=== PATIENT | male | born 1955 | race Caucasian/White ===

== ENCOUNTER 2016-12-03 07:11 | Day surgery (SDC) | payer OTHER ==
[2016-12-03] MEDS ORDERED: BENZOCAINE UNIT DOSE SPRAY HURRICAINE MM ONE (07:18)
[2016-12-03] MEDS ORDERED: fentaNYL 100 MCG/2 ML INJ IVP ONE (07:18)
[2016-12-03] MEDS ORDERED: PROPOFOL 200 MG/20 ML VIAL IVP ONE (07:18)
[2016-12-03] MEDS ORDERED: MIDAZOLAM 2 MG/2 ML VIAL IVP ONE (07:18)
[2016-12-03] MEDS ORDERED: NS 500 ML IV ONE (07:18)
--- NOTE | 2016-12-03 07:35 | CPEKG ---
Heart Rate: 59 RR Interval: 1017 QRSD Interval: 92 QT Interval: 420 QTC Interval: 416 QRS [place]: 27 T Wave [place]: 28 EKG Severity - ABNORMAL ECG - EKG Impression: ATRIAL FIBRILLATION, V-RATE 54-68 EKG Impression: ATRIAL FIBRILLATION WAS NEW IN COMPARISON TO PRIOR ECG (NSR) Electronically Signed By: Timo Higgins 04-Dec-2016 09:06:41
[2016-12-03 07:58] LABS: INR 1.09 (0.83-1.16)
[2016-12-03 07:59] LABS: APTT 27.5 SEC (23.0-38.0)
[2016-12-03] MEDS ORDERED: PROPOFOL 200 MG/20 ML VIAL ONE (08:06)
[2016-12-03 08:09] LABS: ANION GAP 9 mEq/L (8-16); CALCIUM 9.1 mg/dL (8.5-10.4); CARBON DIOXIDE 28 mEq/l (22-31); CHLORIDE 106 mEq/L (97-110); GLOMERULAR FILTRATION RATE > 60; GLUCOSE 102 mg/dL (70-100); MAGNESIUM 1.9 mg/dL (1.6-2.3); POTASSIUM 4.5 mEq/L (3.5-5.2); SODIUM 143 mEq/L (134-144)
[2016-12-03] MEDS ORDERED: ALBUTEROL 3 ML DEYVIAL ONE (08:53)
--- NOTE | 2016-12-03 09:01 | CPEKG ---
Heart Rate: 65 RR Interval: 923 P-R Interval: 236 QRSD Interval: 80 QT Interval: 396 QTC Interval: 412 P [place]: 25 QRS [place]: 9 T Wave [place]: 9 EKG Severity - ABNORMAL ECG - EKG Impression: SINUS RHYTHM EKG Impression: FIRST DEGREE AV BLOCK EKG Impression: PROBABLE LEFT ATRIAL ABNORMALITY EKG Impression: SINUS RHYTHM HAS REPLACED ATRIAL FIBRILLATION Electronically Signed By: Timo Higgins 04-Dec-2016 09:06:59
--- NOTE | 2016-12-03 19:05 | CPR ---
[f rep st] NONINVASIVE CARDIAC PROCEDURE REPORT REPORT TITLE: Cardioversion report. INDICATION: Atrial fibrillation. Anticoagulation. Eliquis was started yesterday evening. Patient has been instructed to continue it for 6 weeks. PETE was done prior to the procedure, and has been dictated separately. ANESTHESIOLOGISTS: Gladys Majano MD. PROCEDURE IN DETAIL: After PETE was done, under IV general anesthesia, 200 joules synchronized bipha sic DC shock was administered, which converted the patient to normal sinus rhythm. There were no complications. /[id number]/MODL
--- NOTE | 2016-12-05 09:18 | ECHO ---
[id number] + + [address] : : [facility] [address] : : [phone] + + Transesophageal Echocardiographic Report + + :Name: CLAYTON STUART Booth Study Date: 12/03/2016 09:30 AM : : Hospital Admission Number: [id number] : :: 1955 Gender: Male : :Age: 61 yrs Race: WH,White : :Reason For Study: Eval PORSCHE : :History: Pre Cardioversion : + + Left Ventricle The left ventricular ejection fraction is normal. The rhythm is atrial fibrillation. Atria Injection of contrast documented no interatrial shunt. The interatrial septum is intact with no evidence for an atrial septal defect. No left atrial mass or thrombus visualized. No thrombus is detected in the left atrial appendage. Mitral Valve The mitral valve is normal. There is no mitral valve stenosis. There is mild mitral regurgitation. Tricuspid Valve Normal tricuspid valve. There is mild tricuspid regurgitation. Aortic Valve The aortic valve is normal in structure and function. The aortic valve is trileaflet. There is no aortic stenosis. Trace aortic regurgitation. Pulmonic Valve The pulmonic valve is normal in structure and function. Trace pulmonic valvular regurgitation. Conclusion A 2D transesophageal echocardiogram with color flow Doppler was performed. The left ventricular ejection fraction is normal. The rhythm is atrial fibrillation. Injection of contrast documented no interatrial shunt. The interatrial septum is intact with no evidence for an atrial septal defect. No left atrial mass or thrombus visualized. No thrombus is detected in the left atrial appendage. There is mild mitral regurgitation. There is mild tricuspid regurgitation. The aortic valve is normal in structure and function. The aortic valve is trileaflet. Trace aortic regurgitation. Trace pulmonic valvular regurgitation. Proceeded with successful elective DC cardioversion. Final Reading Physician: Erasmo Rosales MD electronically signed on 12/05/2016 09:17 AM Ordering Physician: Erasmo Rosales Performed By: Erasmo Rosales MD
== END 2016-12-03 10:15 | disposition home or self-care (01) ==
LOC: FCATH 07:11
PROVIDERS: ATTEND Internal Medicine Cardiovascular Disease
PROC: B245ZZ4 Ultrasonography of Left Heart, Transesophageal (ICD-10-PCS; principal; 2016-12-03)
PROC: 5A2204Z Restoration of Cardiac Rhythm, Single (ICD-10-PCS; principal; 2016-12-03)
DX: I48.1 Persistent atrial fibrillation (principal); E78.00 Pure hypercholesterolemia, unspecified; I10 Essential (primary) hypertension
CPT/HCPCS: J2250; J2704

== ENCOUNTER 2017-06-15 10:43 | Day surgery (SDC) | payer OTHER ==
--- NOTE | 2017-06-15 10:54 | PDANEPAE ---
ANE History of Present Illness h/o a.fib/flutter presents for PETE/CV ANE Past Medical History - Cardiovascular History Hx Hypertension: No Hx Arrhythmias: Yes Hx Chest Pain: No Hx Coronary Artery / Peripheral Vascular Disease: No Hx CHF / Valvular Disease: No Hx Palpitations: Yes - Pulmonary History Hx COPD: No Hx Asthma/Reactive Airway Disease: Yes Hx Recent Upper Respiratory Infection: No Hx Oxygen in Use at Home: No Hx Sleep Apnea: No - Endocrine History Hx Diabetes: No Hypothyroid: Yes - Surgical History Prior Surgeries: s/p CB ablation 09/2013, PETE/CV 11/2016 ANE Review of Systems Review of systems is: negative Review of Systems: - Exercise capacity Exercise capacity: >=4 METS ANE Patient History - Allergies Allergies/Adverse Reactions: No Known Allergies Allergy (Unverified 06/07/13 12:42) - Home Medications Home medications: home medication list seen and reviewed Home Medications: Cyanocobalamin [Vitamin B12 1000 MCG (OTC)] 2,000 mcg PO DAILY 10/04/13 [Last Taken 10/03/13] Herbals/Supplements -Info Only 1 each PO AD 10/04/13 [Last Taken 10/03/13] Levothyroxine [Synthroid] 137 mcg PO DAILY06 10/04/13 [Last Taken 10/03/13] [place]-3 Fatty Acids [Fish Oil 1000 mg (OTC)] 2,000 mg PO DAILY 10/04/13 [Last Taken 10/03/13] Omeprazole [Prilosec 20 mg] 20 mg PO DAILY 10/04/13 [Last Taken 10/03/13] Pitavastatin Calcium [Livalo] 1 mg PO DAILY 10/04/13 [Last Taken 10/03/13] - NPO status NPO Status: no food or drink >8 hours - Anes Hx Anes Hx: no prior problems ANE Labs/Vital Signs - Labs Result Diagrams: 06/15/17 11:12 ANE Physical Exam - Airway Neck exam: FROM Mallampati Score: Class 1 Mouth exam: normal dental/mouth exam - Pulmonary Pulmonary: no respiratory distress - Cardiovascular Cardiovascular: regular rate and rhythym - ASA Status ASA Status: II ANE Anesthesia Plan Anesthesia Plan: GA with mask Urgent/Emergent Case: Betty servin completed preop but documented later for safe timely pt care
[2017-06-15] MEDS ORDERED: BENZOCAINE UNIT DOSE SPRAY HURRICAINE MM ONE (11:05)
[2017-06-15] MEDS ORDERED: ATROPINE SULFATE 1 MG/10 ML SYR IVP ONE (11:05)
[2017-06-15] MEDS ORDERED: MIDAZOLAM 2 MG/2 ML VIAL IVP ONE (11:05)
[2017-06-15] MEDS ORDERED: fentaNYL 100 MCG/2 ML INJ IVP ONE (11:05)
[2017-06-15] MEDS ORDERED: NS 500 ML IV ONE (11:05)
--- NOTE | 2017-06-15 11:13 | CPEKG ---
Heart Rate: 59 RR Interval: 1017 QRSD Interval: 90 QT Interval: 424 QTC Interval: 420 QRS [place]: 4 T Wave [place]: 4 EKG Severity - ABNORMAL ECG - EKG Impression: ATRIAL FIBRILLATION, V-RATE 58-59 Electronically Signed By: Tristian Baeza 15-Jun-2017 11:26:46
[2017-06-15] MEDS ORDERED: PROPOFOL 200 MG/20 ML VIAL ONE (11:39)
[2017-06-15 11:40] LABS: INR 1.13 (0.83-1.16); PROTIME(PATIENT) 14.4 SEC (12.0-15.0)
[2017-06-15 11:41] LABS: APTT 29.2 SEC (23.0-38.0)
--- NOTE | 2017-06-15 11:42 | PDHPUP ---
History & Physical Update H&P update statement: This history and physical update is based on an assessment of the patient which was completed after admission or registration (within 24 hours), but prior to the surgery/procedure. H&P update: H&P reviewed & patient examined, no change in patient's condition since H&P completed
[2017-06-15 11:54] LABS: ANION GAP 13 mEq/L (8-16); CALCIUM 9.8 mg/dL (8.5-10.4); CARBON DIOXIDE 27 mEq/l (22-31); CHLORIDE 104 mEq/L (97-110); CREATININE 1.1 mg/dL (0.7-1.3); GLOMERULAR FILTRATION RATE > 60; GLUCOSE 97 mg/dL (70-100); POTASSIUM 4.7 mEq/L (3.5-5.2); SODIUM 144 mEq/L (134-144)
--- NOTE | 2017-06-15 11:55 | PDTEE1 ---
PETE Cardioversion Procedure Procedure: Electrical Cardioversion, Transesophageal Echo Indications: Atrial Fibrillation Consent: Signed and in Chart Anticoagulation: Eliquis Procedural Details: Pads were placed in anterior-posterior position. PETE probe was advanced and standard images obtained. There is no evidence of left atrial or left atrial appendage thrombus. Synchronized cardioversion attempt #1: 200J Results: Normal sinus rhythm Conclusions: Successful PETE Cardioversion Patient Problems: Problems Problem Status Onset Atrial fibrillation or flutter Acute
--- NOTE | 2017-06-15 12:18 | CPEKG ---
Heart Rate: 55 RR Interval: 1091 P-R Interval: 240 QRSD Interval: 90 QT Interval: 420 QTC Interval: 402 P [place]: 24 QRS [place]: 5 T Wave [place]: 1 EKG Severity - ABNORMAL ECG - EKG Impression: SINUS RHYTHM EKG Impression: FIRST DEGREE AV BLOCK EKG Impression: BORDERLINE T ABNORMALITIES, INFERIOR LEADS Electronically Signed By: Tristian Baeza 15-Jun-2017 13:16:34
--- NOTE | 2017-06-15 12:23 | POSTANESTH ---
Post Anesthetic Evaluation Cardiovascular Status: Normal, Stable Respiratory Status: Normal, Stable Level of Consciousness/Mental Status: Can Participate in Eval Pain Control: Adequate, Prn Tx Ordered Nausea/Vomiting Control: Adequate, Prn Tx Ordered Complications Possibly Related to Anesthesia: None Noted
[2017-06-15] MEDS ORDERED: APIXABAN 5 MG TAB PO SCH (21:00)
--- NOTE | 2017-06-23 11:08 | ECHO ---
[email or web address] [address] [address] Main: [phone] Fax: Transesophageal Echocardiography Name: STUART ARNOLD MR#: [id number] Study Date: 06/15/2017 Study Time: 11:38 AM Date of : 1955 Age: 62 year(s) Height: ( ) Weight: ( ) BSA: Gender: Male Examination: PETE Indication: Image Quality: Contrast: Requested by: Erasmo Rosales Heart Rate: Rhythm: BP: / Procedure Staff Cream Ripener: Blaire Acharya Reading Physician: Erasmo Rosales PETE Exam Details Patient Consent: Risks, alternatives of procedure explained to patient, informed consent obtained. Conclusions: Normal systolic function. The ejection fraction is visually estimated to be 65 %. An agitated saline study was performed and was positive for intracardiac shunting. No thrombus is noted in the left atrium. No thrombus in left appendage. Measurements: Chambers Valvular Assessment AV/MV Valvular Assessment TV/PV Normal Normal Normal Name Value Range Name Value Range Name Value Range Visual EF: 65 % Additional Measurements: Findings: Left Ventricle: Normal size left ventricle. Normal systolic function. The ejection fraction is visually estimated to be 65 %. No regional wall motion abnormality. Right Ventricle: Normal size right ventricle. Left Atrium: An agitated saline study was performed and was positive for intracardiac shunting. No thrombus is noted in the left atrium. Patient: STUART ARNOLD Study Date: 06/15/2017 Page 1 of 2 11:38 AM Left Atrial Appendage: No thrombus in left appendage. Mitral Valve: The mitral valve is normal in appearance and function. Mild mitral valve regurgitation is present. Aortic Valve: The aortic valve is normal in appearance and function. Tricuspid Valve: The tricuspid valve is normal in appearance and function. Mild tricuspid regurgitation is present. Pulmonic Valve: The pulmonic valve is normal in appearance and function. Trivial to mild pulmonic valve regurgitation. Aorta: The aorta is normal. Pericardium: No pericardial effusion. l1n (No Signature Object) Patient: STUART ARNOLD Study Date: 06/15/2017 Page 2 of 2 11:38 AM [id number]
== END 2017-06-15 13:20 | disposition home or self-care (01) ==
LOC: FCATH 10:43
PROVIDERS: ATTEND Internal Medicine Cardiovascular Disease
PROC: 5A2204Z Restoration of Cardiac Rhythm, Single (ICD-10-PCS; principal; 2017-06-15)
PROC: B245ZZ4 Ultrasonography of Left Heart, Transesophageal (ICD-10-PCS; principal; 2017-06-15)
DX: I48.1 Persistent atrial fibrillation (principal)
CPT/HCPCS: J2704

== ENCOUNTER 2017-06-21 10:29 | Emergency (ER) | payer OTHER ==
[2017-06-21 10:39] VITALS: RESP 16
--- NOTE | 2017-06-21 10:48 | CPEKG ---
Heart Rate: 54 RR Interval: 1111 P-R Interval: 216 QRSD Interval: 94 QT Interval: 408 QTC Interval: 387 P [place]: 13 QRS [place]: 6 T Wave [place]: 2 EKG Severity - NORMAL ECG - EKG Impression: SINUS RHYTHM Electronically Signed By: Mak Ruiz 21-Jun-2017 15:13:43
--- NOTE | 2017-06-21 11:38 | EDPHY ---
H & P Time Seen by Provider: 06/21/17 11:01 HPI/ROS: Chief complaint. Blurry vision left eye HPI. 60-year-old male presents emergency department with blurry vision in left eye for 6 days. He had a cardioversion for atrial fibrillation on June 15. He got home and he noticed vision was blurry especially with reading to the left eye. He also has a sense of heart pounding in his head. No chest pain or shortness of breath. No abdominal pain. He is walking okay. Denies focal weakness or paresthesias. ROS Constitutional. no fever/chills, no weakness no similar symptoms previously the leg Eyes. Left eye blurry vision ENT. no sore throat, no nasal drainage Cardiovascular. no chest pain Respiratory. no shortness of breath, no cough Abdominal. no abdominal pain, no nausea/vomiting, no diarrhea . no problems urinating MS. no calf pain/swelling, no neck/back pain, no joint pain Skin. no rash Lymph. no swollen glands Neuro. no headache, no dizziness, no difficulty walking or with speech Past Medical/Surgical History: Past medical history seen for atrial fibrillation, ablation, dyslipidemia Social History: , nonsmoker, no alcohol Smoking Status: Never smoked Physical Exam: General Appearance: Alert well-developed male mild distress vital signs stable Eyes: Pupils equal and round no pallor or injection. ENT, Mouth: Mucous membranes are moist. Respiratory: There are no retractions, lungs are clear to auscultation. Cardiovascular: Regular rate and rhythm. Gastrointestinal: Abdomen is soft and nontender, no masses, bowel sounds normal. Neurological: Awake and alert, sensory and motor exams grossly normal. Speech is normal. Cranial nerves intact. There is no focal weakness or paresthesias. No pronator drift. Lvpxmo-or-iujm is normal. Gait is normal Skin: Warm and dry, no rashes. Musculoskeletal: Neck is supple nontender. Extremities symmetrical, full range of motion. Psychiatric: Patient is oriented X 3, there is no agitation. Constitutional: Initial Vital Signs Temperature (C) 36.8 C 06/21/17 10:37 Heart Rate 58 L 06/21/17 10:37 Respiratory Rate 16 06/21/17 10:37 Blood Pressure 136/80 H 06/21/17 10:37 O2 Sat (%) 97 06/21/17 10:37 O2 Delivery Mode Room Air Allergies/Adverse Reactions: No Known Allergies Allergy (Unverified 06/07/13 12:42) Home Medications: Medication Instructions Recorded Levothyroxine [Synthroid 137 mcg 137 mcg PO DAILY06 10/04/13 (*)] [place]-3 Fatty Acids [Fish Oil 1000 2,000 mg PO DAILY 10/04/13 mg (*)] Omeprazole [Prilosec 20 mg] 20 mg PO DAILY 10/04/13 Eliquis 06/21/17 Medical Decision Making - Diagnostics EKG Interpretation: EKG interpreted by me shows normal sinus rhythm with normal interval and axis. QRS is normal there is no significant ST elevation or depression. No arrhythmia. The rate is 54 Imaging Results: MRI of the brain without contrast is normal. Procedures: IV normal saline, monitor ED Course/Re-evaluation: I consulted and discussed the case with Dr. Mata, neurology, who recommends noncontrast MRI and carotid ultrasound Re-evaluation 2:50 p.m.. Patient is stable. He and I discussed imaging study results, treatment plan including criteria for return importance of follow-up further evaluation. He expresses understanding and agreement Differential Diagnosis: Likely this patient had a small ischemic event to the back of his left eye. We cannot see CVA on MRI. No evidence for intracranial bleeding - Data Points Laboratory Results: Laboratory Results 06/21/17 12:05 06/21/17 12:05 Departure - Departure Disposition: Home, Routine, Self-Care Clinical Impression: Visual changes Condition: Good Instructions: Blurred Vision (ED) Additional Instructions: Normal activity. Return for worsening symptoms. Follow up with ophthalmology for eye exam--Dr. Cortes or João Referrals: José Miguel Candelario MD [Primary Care Provider] - As per Instructions Tyra Cortes MD [Medical Doctor] - As per Instructions
[2017-06-21 12:21] LABS: % IMMATURE GRANULYOCYTES 0.2 % (0.0-1.1); ABSOLUTE IMMATURE GRANULOCYTES 0.01 10^3/uL (0.00-0.10); ADD DIFF? NO; ADD MORPH? NO; ADD SCAN? NO; ATYPICAL LYMPHOCYTE FLAG 10 (0-99); FRAGMENT RBC FLAG 0 (0-99); HEMATOCRIT 46.5 % (40.0-51.0); HEMOGLOBIN 16.3 g/dL (13.7-17.5); LEFT SHIFT FLG 0 (0-99); LIPEMIA HEMOLYSIS FLAG 90 (0-99); MEAN CELL HEMOGLOBIN CONCENTR. 35.1 g/dL (32.4-36.7); MEAN CELL VOLUME 97.1 fL (81.5-99.8); MEAN PLATELET VOLUME 9.2 fL (8.7-11.7); PLATELET CLUMPS FLAG 20 (0-99); PLATELET COUNT 193 10^3/uL (150-400); RED BLOOD CELL COUNT 4.79 10^6/uL (4.40-6.38); RED CELL DISTRIBUTION WIDTH 12.4 % (11.5-15.2)
[2017-06-21 12:37] LABS: INR 1.03 (0.83-1.16); PROTIME(PATIENT) 13.4 SEC (12.0-15.0)
[2017-06-21 12:38] LABS: APTT 28.1 SEC (23.0-38.0)
[2017-06-21 12:43] LABS: ANION GAP 11 mEq/L (8-16); CALCIUM 10.3 mg/dL (8.5-10.4); CARBON DIOXIDE 27 mEq/l (22-31); CHLORIDE 102 mEq/L (97-110); GLOMERULAR FILTRATION RATE > 60; GLUCOSE 93 mg/dL (70-100); POTASSIUM 4.2 mEq/L (3.5-5.2); SODIUM 140 mEq/L (134-144)
[2017-06-21 15:09] VITALS: BP 148/88; PULSE 69; TEMP 98.6; O2SAT 96
== END 2017-06-21 15:08 | disposition home or self-care (01) ==
DX: H57.8 Other specified disorders of eye and adnexa (principal)

== ENCOUNTER 2017-07-20 10:05 | Day surgery (SDC) | payer OTHER ==
[2017-07-20] MEDS ORDERED: BENZOCAINE UNIT DOSE SPRAY HURRICAINE MM ONE (10:10)
[2017-07-20] MEDS ORDERED: MIDAZOLAM 2 MG/2 ML VIAL IVP ONE (10:10)
[2017-07-20] MEDS ORDERED: NS 500 ML IV ONE (10:10)
[2017-07-20] MEDS ORDERED: ATROPINE SULFATE 1 MG/10 ML SYR IVP ONE (10:10)
[2017-07-20] MEDS ORDERED: fentaNYL 100 MCG/2 ML INJ IVP ONE (10:10)
--- NOTE | 2017-07-20 10:33 | CPEKG ---
Heart Rate: 59 RR Interval: 1017 QRSD Interval: 90 QT Interval: 416 QTC Interval: 413 QRS [place]: 17 T Wave [place]: 0 EKG Severity - ABNORMAL ECG - EKG Impression: ATRIAL FIBRILLATION, V-RATE 41-73 EKG Impression: IN COMPARISON TO PRIOR ECG, ATRIAL FIBRILLATION IS NEW Electronically Signed By: Timo Higgins 20-Jul-2017 14:14:40
[2017-07-20 10:55] LABS: INR 1.44 (0.83-1.16); PROTIME(PATIENT) 17.5 SEC (12.0-15.0)
[2017-07-20 10:57] LABS: APTT 49.4 SEC (23.0-38.0)
[2017-07-20 11:17] LABS: ANION GAP 14 mEq/L (8-16); CALCIUM 9.1 mg/dL (8.5-10.4); CARBON DIOXIDE 22 mEq/l (22-31); CHLORIDE 108 mEq/L (97-110); GLOMERULAR FILTRATION RATE > 60; GLUCOSE 95 mg/dL (70-100); POTASSIUM 4.3 mEq/L (3.5-5.2); SODIUM 144 mEq/L (134-144)
--- NOTE | 2017-07-20 12:47 | PDANEPAE ---
ANE History of Present Illness 62 yo for annelise/cv afib ANE Past Medical History - Cardiovascular History Hx Hypertension: No Hx Arrhythmias: Yes Hx Chest Pain: No Hx Coronary Artery / Peripheral Vascular Disease: No Hx CHF / Valvular Disease: No Hx Palpitations: Yes - Pulmonary History Hx COPD: No Hx Asthma/Reactive Airway Disease: Yes Hx Recent Upper Respiratory Infection: No Hx Oxygen in Use at Home: No Hx Sleep Apnea: No - Endocrine History Hx Diabetes: No - Surgical History Prior Surgeries: s/p CB ablation 09/2013, ANNELISE/CV 11/2016 ANE Review of Systems Review of Systems: - Exercise capacity METS (RN): 4 METS ANE Patient History - Allergies Allergies/Adverse Reactions: No Known Allergies Allergy (Unverified 06/07/13 12:42) - Home Medications Home Medications: Levothyroxine [Synthroid 137 mcg (*)] 137 mcg PO DAILY06 10/04/13 [Last Taken 07:00] [place]-3 Fatty Acids [Fish Oil 1000 mg (*)] 2,000 mg PO DAILY 10/04/13 [Last Taken 07/19/17 07:00] Pradaxa 150 mg PO BID 07/20/17 [Last Taken 07/20/17 07:00] - Anes Hx Anes Hx: no prior problems - Smoking Hx Smoking Status: Never smoked ANE Labs/Vital Signs - Labs Result Diagrams: 07/20/17 10:40 - Vital Signs Height: 5 ft 11 in Weight: 92.986 kg ANE Physical Exam - Airway Neck exam: FROM Mallampati Score: Class 2 Mouth exam: normal dental/mouth exam - Pulmonary Pulmonary: no respiratory distress - Cardiovascular Cardiovascular: regular rate and rhythym - ASA Status ASA Status: II ANE Anesthesia Plan Anesthesia Plan: GA with mask Total IV Anesthesia: Yes
--- NOTE | 2017-07-20 12:48 | PDGENHP ---
History & Physical Chief Complaint: AFIB with sx of exertional dyspnea and exertionalnear syncope History of Present Illness: Persistent AFIB Pertinent Past, Social, Family History: None except resting bradycardia Relevant Physical Exam: S1S2 irreg. CTA. A O x 3 Cardiorespiratory Assessment: Persistent AFIB for PETE and CV
[2017-07-20] MEDS ORDERED: PROPOFOL 200 MG/20 ML VIAL ONE (12:51)
--- NOTE | 2017-07-20 13:03 | PDTEE1 ---
PETE Cardioversion Procedure Procedure: electrical cardioversion, transesophageal echo Indications: atrial fibrillation Consent: signed and in chart Anticoagulation: other (Pradaxa) Procedural Details: Pads were placed in anterior-posterior position. PETE probe was advanced and standard images obtained. There is no evidence of left atrial or left atrial appendage thrombus. Synchronized cardioversion attempt #1: 200J Results: normal sinus rhythm Conclusions: successful PETE cardioversion Patient Problems: Problems Problem Status Onset Atrial fibrillation or flutter Acute
--- NOTE | 2017-07-20 13:09 | CPEKG ---
Heart Rate: 52 RR Interval: 1154 P-R Interval: 232 QRSD Interval: 90 QT Interval: 436 QTC Interval: 406 P [place]: 44 QRS [place]: 16 T Wave [place]: 15 EKG Severity - ABNORMAL ECG - EKG Impression: SINUS RHYTHM EKG Impression: FIRST DEGREE AV BLOCK EKG Impression: ATRIAL FIBRILLATION HAS BEEN REPLACED BY SINUS RHYTHM Electronically Signed By: Timo Higgins 20-Jul-2017 14:15:01
--- NOTE | 2017-07-24 10:11 | ECHO ---
[email or web address] [place] [id number] Main: [phone] Fax: Transesophageal Echocardiography Name: STUART ARNOLD MR#: [id number] Study Date: 07/20/2017 Study Time: 11:34 AM Date of : 1955 Age: 62 year(s) Height: ( ) Weight: ( ) BSA: Gender: Male Examination: PETE Indication: Atrial Fibrillation Image Quality: Contrast: Requested by: Erasmo Rosales Heart Rate: Rhythm: BP: 108 mmHg/78 mmHg Procedure Staff Home Stager: Reading Physician: Erasmo Rosales Requesting Provider: PETE Exam Details Conclusions: Normal global systolic LV function. No thrombus in left appendage. Mild mitral valve regurgitation is present. Mild tricuspid regurgitation is present. Measurements: Chambers Valvular Assessment AV/MV Valvular Assessment TV/PV Normal Normal Normal Name Value Range Name Value Range Name Value Range Additional Measurements: Findings: Left Ventricle: Normal global systolic LV function. Left Atrial Appendage: No thrombus in left appendage. Mitral Valve: Mild mitral valve regurgitation is present. Aortic Valve: The aortic valve is tri-leaflet. Trivial aortic valve regurgitation. Tricuspid Valve: Mild tricuspid regurgitation is present. Patient: STUART ANROLD Study Date: 07/20/2017 Page 1 of 2 11:34 AM Pulmonic Valve: Trivial pulmonic valve regurgitation. l1n (No Signature Object) Patient: STUART ARNOLD Study Date: 07/20/2017 Page 2 of 2 11:34 AM [id number]
== END 2017-07-20 14:30 | disposition home or self-care (01) ==
LOC: FCATH 10:05
PROVIDERS: ATTEND Internal Medicine Cardiovascular Disease
PROC: B245ZZ4 Ultrasonography of Left Heart, Transesophageal (ICD-10-PCS; principal; 2017-07-20)
PROC: 5A2204Z Restoration of Cardiac Rhythm, Single (ICD-10-PCS; principal; 2017-07-20)
DX: I48.1 Persistent atrial fibrillation (principal)
CPT/HCPCS: J0461; J2704

== ENCOUNTER → 2017-08-31 | Outpatient (CLI) | payer OTHER ==
[~2017-08-31] MED LIST: IOPAMIDOL (ISOVUE 370) 100 ML BTL IV ONE
== END ==
LOC: FIMAGING 10:11
PROVIDERS: ATTEND Internal Medicine Cardiovascular Disease
DX: I48.91 Unspecified atrial fibrillation (principal); I25.84 Coronary atherosclerosis due to calcified coronary lesion
CPT/HCPCS: Q9967

== ENCOUNTER 2017-09-07 11:09 | Observation (INO) | payer OTHER ==
[2017-09-07] MEDS ORDERED: NS 1,000 ML IV ONE (11:13)
--- NOTE | 2017-09-07 11:30 | CPEKG ---
Heart Rate: 62 RR Interval: 968 P-R Interval: 208 QRSD Interval: 88 QT Interval: 396 QTC Interval: 402 P [place]: 24 QRS [place]: 16 T Wave [place]: 13 EKG Severity - BORDERLINE ECG - EKG Impression: SINUS RHYTHM EKG Impression: CONSIDER INFERIOR INFARCT EKG Impression: COMPARED WITH 07/20/2017 AT 1:07 P.M. NO SIGNIFICANT CHANGE Electronically Signed By: Ilene Ernandez 07-Sep-2017 19:07:59
[2017-09-07 11:44] LABS: % IMMATURE GRANULYOCYTES 0.4 % (0.0-1.1); ABSOLUTE IMMATURE GRANULOCYTES 0.02 10^3/uL (0.00-0.10); ADD DIFF? NO; ADD MORPH? NO; ADD SCAN? NO; ATYPICAL LYMPHOCYTE FLAG 0 (0-99); FRAGMENT RBC FLAG 0 (0-99); HEMATOCRIT 43.9 % (40.0-51.0); LEFT SHIFT FLG 0 (0-99); LIPEMIA HEMOLYSIS FLAG 90 (0-99); MEAN CELL HEMOGLOBIN 34.3 pg (27.9-34.1); MEAN CELL HEMOGLOBIN CONCENTR. 36.4 g/dL (32.4-36.7); MEAN CELL VOLUME 94.2 fL (81.5-99.8); MEAN PLATELET VOLUME 8.8 fL (8.7-11.7); PLATELET CLUMPS FLAG 0 (0-99); PLATELET COUNT 196 10^3/uL (150-400); RED BLOOD CELL COUNT 4.66 10^6/uL (4.40-6.38); RED CELL DISTRIBUTION WIDTH 12.1 % (11.5-15.2)
[2017-09-07] MEDS ORDERED: HEPARIN/DEXTROSE 25,000 UNIT/500 ML BAG ONE (11:47)
[2017-09-07] MEDS ORDERED: BUPIVACAINE 0.5% 30 ML SDV ONE (11:47)
[2017-09-07] MEDS ORDERED: HEPARIN 10,000 UNIT/10 ML MDV ONE ×2 (11:47→12:19)
[2017-09-07] MEDS ORDERED: LIDOCAINE 1% 300 MG/30 ML SDV ONE (11:47)
[2017-09-07 11:58] LABS: INR 0.97 (0.83-1.16); PROTIME(PATIENT) 13.1 SEC (12.0-15.0)
[2017-09-07 11:59] LABS: APTT 26.5 SEC (23.0-38.0)
[2017-09-07 12:00] LABS: ANION GAP 15 mEq/L (8-16); CALCIUM 9.7 mg/dL (8.5-10.4); CARBON DIOXIDE 23 mEq/l (22-31); CHLORIDE 107 mEq/L (97-110); CREATININE 0.9 mg/dL (0.7-1.3); GLOMERULAR FILTRATION RATE > 60; GLUCOSE 99 mg/dL (70-100); MAGNESIUM 1.9 mg/dL (1.6-2.3); POTASSIUM 4.3 mEq/L (3.5-5.2); SODIUM 145 mEq/L (134-144)
--- NOTE | 2017-09-07 12:02 | PDANEPAE ---
ANE History of Present Illness here for AF ablation ANE Past Medical History - Cardiovascular History Hx Hypertension: No Hx Arrhythmias: Yes Hx Chest Pain: No Hx Coronary Artery / Peripheral Vascular Disease: No Hx CHF / Valvular Disease: No Hx Palpitations: Yes - Pulmonary History Hx COPD: No Hx Asthma/Reactive Airway Disease: Yes Hx Recent Upper Respiratory Infection: No Hx Oxygen in Use at Home: No Hx Sleep Apnea: No - Endocrine History Hx Diabetes: No - Surgical History Prior Surgeries: s/p CB ablation 09/2013, PETE/CV 11/2016 ANE Review of Systems Review of Systems: ANE Patient History - Allergies Allergies/Adverse Reactions: No Known Allergies Allergy (Unverified 06/07/13 12:42) - Home Medications Home Medications: [place]-3 Fatty Acids [Fish Oil 1000 mg (*)] 1,000 mg PO DAILY 10/04/13 [Last Taken 07/19/17 07:00] Dabigatran Etexilate Mesyl [Pradaxa 150 MG (*)] 150 mg PO BID #0 07/20/17 [Last Taken 07/20/17 07:00] Herbals/Supplements -Info Only 1 ea PO DAILY 09/03/17 [Last Taken Unknown] Levothyroxine [Synthroid 150 mcg (*)] 150 mcg PO DAILY06 09/03/17 [Last Taken Unknown] Omeprazole [Prilosec 20 mg] 20 mg PO DAILY 09/03/17 [Last Taken Unknown] Pitavastatin Calcium [Livalo] 0.5 mg PO DAILY 09/03/17 [Last Taken Unknown] - Smoking Hx Smoking Status: Never smoked ANE Labs/Vital Signs - Labs Result Diagrams: 09/07/17 11:30 09/07/17 11:30 - Vital Signs Height: 180 cm Weight: 93 kg
[2017-09-07] MEDS ORDERED: MIDAZOLAM 2 MG/2 ML VIAL IVP ONE (12:03)
--- NOTE | 2017-09-07 12:44 | PDGENHP ---
History & Physical Chief Complaint: symptomatic AFIb History of Present Illness: AFib Relevant Physical Exam: s1s2 rrr. cta. ao3 Cardiorespiratory Assessment: symptomatic afib sp dccv x 2. does not want to take meds. Plan RF ablation (prior CB ablation)
[2017-09-07] MEDS ORDERED: PROPOFOL/EMULSION 500 MG/50 ML BOTTLE IV ONE (13:08)
[2017-09-07] MEDS ORDERED: fentaNYL 100 MCG/2 ML INJ ONE (13:10)
[2017-09-07] MEDS ORDERED: PROPOFOL 200 MG/20 ML VIAL ONE (13:23)
[2017-09-07] MEDS ORDERED: IOPAMIDOL (ISOVUE-300) 100 ML BTL ONE (13:31)
[2017-09-07] MEDS ORDERED: ISOPROTERENOL HCL/D5W 0.2 MG/50 ML BAG IV ONE (14:23)
[2017-09-07] MEDS ORDERED: ISOPROTERENOL HCL 0.2 MG/ML 5ML AMP ONE (14:24)
[2017-09-07] MEDS ORDERED: PROTAMINE SULFATE 50 MG/5 ML VIAL IVP ONE (16:01)
--- NOTE | 2017-09-07 16:49 | POSTANESTH ---
Post Anesthetic Evaluation Cardiovascular Status: Normal, Stable, Tx Over/Under Hydration Level of Consciousness/Mental Status: Can Participate in Eval, Moderately Sleepy Pain Control: Adequate, Prn Tx Ordered Nausea/Vomiting Control: Adequate, Prn Tx Ordered Complications Possibly Related to Anesthesia: None Noted
[2017-09-07] MEDS ORDERED: OXYCODONE/APAP 5/325 TAB PO PRN (17:12)
[2017-09-07] MEDS ORDERED: ACETAMINOPHEN 325 MG TAB PO PRN (17:12)
[2017-09-07] MEDS ORDERED: ONDANSETRON 4 MG/2 ML VIAL IVP PRN (17:12)
--- NOTE | 2017-09-07 17:29 | EPPROC ---
Electrophysiology Procedure Note: ELECTROPHYSIOLOGIC STUDY AND CATHETER MEDIATED ABLATION FOR PAROXYSMAL ATRIAL FIBRILLATION Procedures performed: 98806-16 EP evaluation with RA/RV/LA pace/record, with arrhythmia induction 47984-67 EP evaluation with RA/RV pace record, insert/reposition catheter, with arrhythmia induction 28773 Atrial fibrillation ablation 90013 3D mapping Intracardiac echocardiogram Transseptal puncture Fluoroscopy INDICATION: Paroxysmal atrial fibrillation PROCEDURE: The patient arrived in the Electrophysiology Laboratory in the fasting state. The right groin, left groin and right infraclavicular area were prepped and draped in the usual sterile fashion. Anesthesiologist administered general anesthesia Dr. Harlan Qureshi . All catheters were placed percutaneously using the Seldinger technique and advanced into position under fluoroscopic guidance. One #7 [place] deflectable octapolar electrode catheter was placed in the His-bundle position via the left femoral vein (2mm spacing, IVC electrode for unipolar recordings). This catheter was placed in the coronary sinus after transseptal puncture. One #8 [place] AcuNaV ultrasound catheter was placed in the left femoral vein and advanced into the right atrium. One #4 [place] sheath was inserted into the left femoral artery via percutaneous technique and used for continuous arterial blood pressure monitoring and intermittent ACT determination. Programmed stimulation was performed from the right atrium, left atrium (CS) and right ventricle. There was no evidence of AV accessory pathway. Intracardiac echo evaluation of the left atrium and pulmonary veins was performed. Baseline ACT was drawn and heparin bolus was administered and heparin drip was started prior to transseptal puncture. ACT was checked every 15 minutes and maintained in the range of 350-400 seconds. One SL1 sheath (8.5 Fr) were inserted into the right femoral vein and advanced into the right atrium. Transseptal puncture was performed under intracardiac ultrasound, fluoroscopic and hemodynamic guidance placing the sheath into the left atrium. [place] RF needle (C0 curve) was used. The mean left atrial pressure was 8 mmHg. Conventional pulmonary vein angiography was done using SL1 sheaths. PV anatomy : LSPV, LIPV, RSPV, RIPV. Pentaray catheter was placed via SL1 sheath. High resolution map of LA and all [address] angiography of the pulmonary veins and left atrium obtained previously was used in the CARTO-MERGE system for guidance in placing the catheter. Intracardiac ultrasound was used to assist in placing the mapping catheter outside the antrum of the pulmonary veins. All 4 PV were isolated from prior CB ablation. However there were antral signals anterior to LPV and RPV that were targeted for ablation to achieve a wider area of antral isolation. 3.[address]-SF catheter was used for ablation. A high-resolution electroanatomical map of the left atrium and pulmonary veins was obtained during atrial fibrillation An esophageal temperature probe (12 electrode, Circa) was placed by the anesthesiologist at the beginning of the procedure. Esophageal temperature was monitored continuously and RF ablation was interrupted if there was a temperature rise >0.5 C. There was no esophageal temperature rise. Isoproterenol 20 mcg/min was infused for 10 minutes. There was no spontaneous atrial fibrillation. Mapping of all 4 pulmonary veins after isoproterenol infusion (30 minutes post last ablation lesion) showed that all 4 pulmonary veins remained isolated. ICE imaging was consistent with pre ablation imaging; moreover it showed no pericardial effusion or LA/PORSCHE thrombus at the end of the procedure. The catheters were withdrawn. Pursestring sutures (SQ) were placed around the venous access sites and venous sheaths were pulled in the EP lab. The patient was recovered from anesthesia. There were no complications. CONCLUSIONS: 1. Paroxysmal atrial fibrillation. 2. Successful pulmonary vein re-isolation procedure (left and right pulmonary vein antrum) 3. No apparent complications. Patient Problems: Problems Problem Status Onset Atrial fibrillation or flutter Acute
[2017-09-07 18:48] LABS: ANION GAP 8 mEq/L (8-16); CALCIUM 8.1 mg/dL (8.5-10.4); CARBON DIOXIDE 23 mEq/l (22-31); CHLORIDE 112 mEq/L (97-110); CREATININE 0.9 mg/dL (0.7-1.3); GLOMERULAR FILTRATION RATE > 60; GLUCOSE 87 mg/dL (70-100); MAGNESIUM 1.8 mg/dL (1.6-2.3); POTASSIUM 3.8 mEq/L (3.5-5.2); SODIUM 143 mEq/L (134-144)
[2017-09-07] MEDS ORDERED: NS BOLUS 500 ML (Wide open) IV ONE (19:30)
--- NOTE | 2017-09-07 20:58 | CPEKG ---
Heart Rate: 57 RR Interval: 1053 P-R Interval: 220 QRSD Interval: 90 QT Interval: 400 QTC Interval: 390 P [place]: 36 QRS [place]: 21 T Wave [place]: 9 EKG Severity - ABNORMAL ECG - EKG Impression: SINUS RHYTHM EKG Impression: FIRST DEGREE AV BLOCK EKG Impression: BORDERLINE T ABNORMALITIES, ANTERIOR LEADS Electronically Signed By: Erasmo Rosales 07-Sep-2017 21:34:56
[2017-09-07] MEDS ORDERED: ENOXAPARIN 100 MG/ML SYR SC SCH (23:00)
[2017-09-08 05:32] LABS: % IMMATURE GRANULYOCYTES 0.3 % (0.0-1.1); ABSOLUTE IMMATURE GRANULOCYTES 0.02 10^3/uL (0.00-0.10); ADD DIFF? NO; ADD MORPH? NO; ADD SCAN? NO; ATYPICAL LYMPHOCYTE FLAG 0 (0-99); FRAGMENT RBC FLAG 0 (0-99); HEMATOCRIT 37.4 % (40.0-51.0); HEMOGLOBIN 12.8 g/dL (13.7-17.5); LEFT SHIFT FLG 0 (0-99); LIPEMIA HEMOLYSIS FLAG 90 (0-99); MEAN CELL HEMOGLOBIN 33.8 pg (27.9-34.1); MEAN CELL HEMOGLOBIN CONCENTR. 34.2 g/dL (32.4-36.7); MEAN CELL VOLUME 98.7 fL (81.5-99.8); MEAN PLATELET VOLUME 8.5 fL (8.7-11.7); PLATELET CLUMPS FLAG 10 (0-99); PLATELET COUNT 149 10^3/uL (150-400); RED BLOOD CELL COUNT 3.79 10^6/uL (4.40-6.38); RED CELL DISTRIBUTION WIDTH 12.5 % (11.5-15.2)
[2017-09-08 05:37] LABS: INR 1.07 (0.83-1.16); PROTIME(PATIENT) 14.1 SEC (12.0-15.0)
[2017-09-08 05:51] LABS: ANION GAP 10 mEq/L (8-16); CALCIUM 8.1 mg/dL (8.5-10.4); CARBON DIOXIDE 19 mEq/l (22-31); CHLORIDE 113 mEq/L (97-110); CREATININE 0.8 mg/dL (0.7-1.3); GLOMERULAR FILTRATION RATE > 60; GLUCOSE 89 mg/dL (70-100); POTASSIUM 3.9 mEq/L (3.5-5.2); SODIUM 142 mEq/L (134-144)
[2017-09-08 05:57] LABS: CREATINE KINASE-MB FRACTION 2.06 ng/mL (0.00-3.19); TROPONIN I 0.063 ng/mL (0.000-0.034)
[2017-09-08] MEDS ORDERED: LEVOTHYROXINE 150 MCG TAB PO SCH (06:00)
[2017-09-08 08:25] VITALS: RESP 14; TEMP 98.1
[2017-09-08] MEDS ORDERED: PANTOPRAZOLE SODIUM 40 MG TAB PO SCH (09:00)
[2017-09-08] MEDS ORDERED: PRAVASTATIN SODIUM 10 MG TAB PO SCH (09:00)
--- NOTE | 2017-09-08 09:03 | CPEKG ---
Heart Rate: 56 RR Interval: 1071 P-R Interval: 204 QRSD Interval: 84 QT Interval: 396 QTC Interval: 383 P [place]: 31 QRS [place]: 36 T Wave [place]: 16 EKG Severity - NORMAL ECG - EKG Impression: SINUS RHYTHM EKG Impression: FIRST-DEGREE AV BLOCK EKG Impression: COMPARED WITH 09/07/2017 AT 8:57 P.M., ANTERIOR T-WAVE ABNORMALITIES RESOLVED Electronically Signed By: Ilene Ernandez 08-Sep-2017 09:48:29
[2017-09-08 10:03] VITALS: PULSE 55; O2SAT 94
[2017-09-08 10:04] VITALS: BP 118/54
[2017-09-08] MEDS ORDERED: DABIGATRAN ETEXILATE MESYL 150 MG CAP PO SCH (11:00)
--- NOTE | 2017-09-08 18:01 | ECHO ---
[email or web address] [address] [address] Main: [phone] Fax: Transthoracic Echocardiogram Name: STUART ARNOLD MR#: [id number] Study Date: 09/08/2017 Study Time: 07:57 AM Date of : 1955 Age: 62 year(s) Height: 177.8 cm (70 in.) Weight: 92.99 kg (205 lb.) BSA: 2.11 m2 Gender: Male Examination: Echo Indication: Post EP Image Quality: Contrast: Requested by: Earsmo Rosales BP: 115 mmHg/60 mmHg Heart Rate: Rhythm: Indication: Post EP Procedure Staff Cook Starch: Tristan Tillman Reading Physician: Chris Garcia Requesting Provider: Conclusions: Normal size left ventricle. Mild concentric LV hypertrophy. Normal global systolic LV function. EF is 64 %. Normal size right ventricle. Normal RV function. The left atrium is normal in size. The right atrium is normal in size. No pericardial effusion. Measurements: Chambers Valvular Assessment AV/MV Valvular Assessment TV/PV Normal Normal Normal Name Value Range Name Value Range Name Value Range Ao Sarah (MM): 2.8 cm (2.2 cm-3.7 AV Vmax: 1.75 m/s (1 m/s-1.7 TR Vmax: 2.09 mm/s ( - ) cm) m/s) TR PGmax: 17 mmHg ( - ) IVSd (2D): 1.2 cm (0.6 cm-1.1 AV maxP mmHg ( - ) syst. PAP: 22 mmHg ( - ) cm) LVOT Vmax: 1.38 m/s (0.7 m/s-1.1 PV Vmax: 1.09 m/s (0.6 m/s-0.9 LVDd (2D): 3.7 cm (4.2 cm-5.9 m/s) m/s) cm) MV E Vmax: 0.91 m/s ( - ) PV PGmax: 5 mmHg ( - ) LVDs (2D): 2.4 cm (2.1 cm-4 MV A Vmax: 0.43 m/s ( - ) cm) MV E/A: 2.12 ( - ) LVPWd (2D): 1.3 cm (0.6 cm-1 cm) LVEF (2D): 64 (>=54 %) Continued Measurements: Chambers Valvular Assessment AV/MV Valvular Assessment TV/PV Name Value Name Value Name Value Patient: STUART ARNOLD Study Date: 09/08/2017 Page 1 of 2 07:57 AM LADs Lon.9 cm MV E/E' Septal: 10.00 CVP (est.): 5 mmHg LA Area: 22.7 cm2 MV E/E' Lateral: 6.90 LA Volume: 69 ml LA Volume Index: 32.7 ml/m2 Findings: Left Ventricle: Normal size left ventricle. Mild concentric LV hypertrophy. Normal global systolic LV function. EF is 64 %. No regional wall motion abnormality. Diastolic dysfunction is present. . Right Ventricle: Normal size right ventricle. Normal RV function. Left Atrium: The left atrium is normal in size. Right Atrium: The right atrium is normal in size. Mitral Valve: The mitral valve is normal in appearance. Mild mitral valve regurgitation is present. Aortic Valve: The aortic valve is normal in appearance. The aortic valve is normal in appearance and function. Tricuspid Valve: The tricuspid valve is normal in appearance and function. Pulmonic Valve: The pulmonic valve is normal in appearance and function. Aorta: The aorta is normal. Pericardium: No pericardial effusion. (No Signature Object) Patient: STUART ARNOLD Study Date: 09/08/2017 Page 2 of 2 07:57 AM [id number]
--- NOTE | 2017-09-08 22:47 | GDS ---
[f rep st] DISCHARGE SUMMARY DISCHARGE DIAGNOSES: 1. Atrial fibrillation. 2. Status post atrial fibrillation ablation. BRIEF HISTORY: This is a 62-year-old man who had a prior cryoballoon ablation of atrial fibrillation in September 2013. He had done very well until last spring , when he had a UTI and had an episode of AFib requiring cardioversion. He has since continued to have more episodes. He has a CHADS/VASc of [address] scan. HOSPITAL COURSE: Dr. Rosales performed re-isolation RF ablation of pulmonary veins. Patient had no complications. Overnight he felt well. He denies any chest pain, pressure, tightness, or shortness of breath. He has not had any atrial fibrillation on telemetry. He denies any pain or bleeding at his groin sites. TESTING DONE: Echocardiogram preliminary results reported as normal LV without wall motion abnormalities and no pericardial effusion. 12-lead EKG demonstrates sinus rhythm without ST-T wave changes. Chest CT done prior to appointment for ablation demonstrated normal pulmonary vein anatomy, no pulmonary nodules or lymphadenopathy, and calcified coronary artery disease. LAB WORK: WBC is 5.77, hemoglobin 12.8, hematocrit 37.4, platelets 149. Sodium 142, potassium 3.9, chloride 113, bicarb 19, BUN 12, creatinine 0.8, glucose 89, CK 81, CK-MB percent 2.06. Troponin is 0.063. PHYSICAL EXAM: VITAL SIGNS: Blood pressure is 115/63, pulse is 58, respirations 14, temperature 36.7, O2 saturation on room air is 90%. GENERAL: He is alert and oriented, walking around the room. CARDIAC: Regular rate and rhythm without murmur, rub, or gallop. LUNGS: Clear except for fine crackles in bases. ABDOMEN: Soft and nontender. Groin sites without bleeding. Sutures were removed from groin sites without problem. No hematomas. LOWER EXTREMITIES: Warm. No discoloration. No lower extremity edema. Bilateral +2 pedal pulses. DISCHARGE INSTRUCTIONS: Postablation activity restrictions were reviewed verbally with patient and his , and he was given written instructions at the time of discharge. Of note, he was told not to do any heavy lifting for 1 month. He was also told not to go in the [facility] next week. DISCHARGE MEDICATIONS: Please see discharge medication reconciliation. Of note , his Pradaxa was restarted this morning. He will also take omeprazole for 6 weeks post ablation. FOLLOWUP: He has a followup September 30 at 1:[address] Rosales. /[id number]/MODL MTDD
== END 2017-09-08 12:16 | disposition home or self-care (01) ==
LOC: FCATH 11:09 → F2N 16:26 → INTOOBSV 16:26
PROVIDERS: ADMIT Internal Medicine Cardiovascular Disease; ATTEND Internal Medicine Cardiovascular Disease
DX: I48.0 Paroxysmal atrial fibrillation (principal); Z87.440 Personal history of urinary (tract) infections
CPT/HCPCS: 93005; 93306; 93312; 93613; 93656; 93662; C1893; G0378; C1731; C1732; C1759; J1644; J1650; J2250; J2405; J2704; J2720; J3010; Q9967

== ENCOUNTER → 2017-09-29 | Outpatient (CLI) | payer OTHER | LOC: FIMAGING 11:19 | PROVIDERS: ATTEND Nurse Practitioner Family | DX: M79.662 Pain in left lower leg (principal) ==

== ENCOUNTER → 2017-09-29 | Outpatient (CLI) | payer OTHER | LOC: FIMAGING 11:13 | PROVIDERS: ATTEND Nurse Practitioner Family | DX: M19.011 Primary osteoarthritis, right shoulder (principal); M17.12 Unilateral primary osteoarthritis, left knee; M25.462 Effusion, left knee; M41.84 Other forms of scoliosis, thoracic region ==

== ENCOUNTER 2017-10-05 11:03 | Day surgery (SDC) | payer OTHER ==
[2017-10-05] MEDS ORDERED: fentaNYL 100 MCG/2 ML INJ IVP ONE (11:07)
[2017-10-05] MEDS ORDERED: NS 500 ML IV ONE (11:07)
[2017-10-05] MEDS ORDERED: BENZOCAINE UNIT DOSE SPRAY HURRICAINE MM ONE (11:07)
[2017-10-05] MEDS ORDERED: ATROPINE SULFATE 1 MG/10 ML SYR IVP ONE (11:07)
[2017-10-05] MEDS ORDERED: MIDAZOLAM 2 MG/2 ML VIAL IVP ONE (11:07)
--- NOTE | 2017-10-05 11:26 | CPEKG ---
Heart Rate: 70 RR Interval: 857 QRSD Interval: 86 QT Interval: 408 QTC Interval: 441 QRS [place]: 10 T Wave [place]: 9 EKG Severity - ABNORMAL ECG - EKG Impression: ATRIAL FIBRILLATION, V-RATE 54-82 EKG Impression: PROBABLE INFERIOR INFARCT, AGE INDETERMINATE Electronically Signed By: Erasmo Rosales 05-Oct-2017 12:38:52
[2017-10-05 12:04] LABS: INR 1.16 (0.83-1.16)
--- NOTE | 2017-10-05 12:59 | PDGENHP ---
History & Physical Chief Complaint: symptomatic AFIB Pertinent Past, Social, Family History: afib sp ablation Relevant Physical Exam: s1s2 irreg. cta. ao3 Cardiorespiratory Assessment: symptomatic afib sp RFA, for ablation
[2017-10-05] MEDS ORDERED: PROPOFOL 200 MG/20 ML VIAL ONE (13:22)
--- NOTE | 2017-10-05 13:22 | PDANEPAE ---
ANE History of Present Illness 62 year old male with A. Fib for PETE/CV. ANE Past Medical History - Cardiovascular History Hx Hypertension: No Hx Arrhythmias: Yes Hx Chest Pain: No Hx Coronary Artery / Peripheral Vascular Disease: No Hx CHF / Valvular Disease: No Hx Palpitations: Yes - Pulmonary History Hx COPD: No Hx Asthma/Reactive Airway Disease: Yes Hx Recent Upper Respiratory Infection: No Hx Oxygen in Use at Home: No Hx Sleep Apnea: No - Endocrine History Hx Diabetes: No - Surgical History Prior Surgeries: s/p CB ablation 09/2013, PETE/CV 11/2016 ANE Review of Systems Review of systems is: negative Review of Systems: - Exercise capacity Exercise capacity: >=4 METS ANE Patient History - Allergies Allergies/Adverse Reactions: No Known Allergies Allergy (Unverified 06/07/13 12:42) - Home Medications Home medications: home medication list seen and reviewed Home Medications: [place]-3 Fatty Acids [Fish Oil 1000 mg (*)] 1,000 mg PO DAILY 10/04/13 [Last Taken 07/19/17 07:00] Dabigatran Etexilate Mesyl [Pradaxa 150 MG (*)] 150 mg PO BID #0 07/20/17 [Last Taken 07/20/17 07:00] Herbals/Supplements -Info Only 1 ea PO DAILY 09/03/17 [Last Taken Unknown] Levothyroxine [Synthroid 150 mcg (*)] 150 mcg PO DAILY06 09/03/17 [Last Taken Unknown] Omeprazole [Prilosec 20 mg] 20 mg PO DAILY 09/03/17 [Last Taken Unknown] Pitavastatin Calcium [Livalo] 0.5 mg PO DAILY 09/03/17 [Last Taken Unknown] - NPO status NPO Status: no food or drink >8 hours - Anes Hx Anes Hx: no prior problems - Smoking Hx Smoking Status: Never smoked Marijuana use: No - Alcohol Use Alcohol Use: Rarely - Family Anes Hx Family Anes Hx: neg - N/A ANE Labs/Vital Signs - Labs Result Diagrams: 10/05/17 11:20 - Vital Signs Vital Signs: reviewed preoperatively; see RN documention for details Height: 180 cm Weight: 93 kg ANE Physical Exam - Airway Neck exam: FROM Mallampati Score: Class 2 Mouth exam: normal dental/mouth exam - Pulmonary Pulmonary: no respiratory distress - Cardiovascular Cardiovascular: regular rate and rhythym - ASA Status ASA Status: III ANE Anesthesia Plan Anesthesia Plan: general endotracheal anesthesia Total IV Anesthesia: No
--- NOTE | 2017-10-05 13:41 | PDTEE1 ---
PETE Cardioversion Procedure Procedure: electrical cardioversion, transesophageal echo Indications: atrial fibrillation Consent: signed and in chart Anticoagulation: eliquis Procedural Details: Pads were placed in anterior-posterior position. PETE probe was advanced and standard images obtained. There is no evidence of left atrial or left atrial appendage thrombus. Synchronized cardioversion attempt #1: 200J Results: normal sinus rhythm Conclusions: successful PETE cardioversion Patient Problems: Problems Problem Status Onset Atrial fibrillation or flutter Acute
--- NOTE | 2017-10-05 13:47 | CPEKG ---
Heart Rate: 67 RR Interval: 896 P-R Interval: 224 QRSD Interval: 92 QT Interval: 400 QTC Interval: 423 P [place]: 41 QRS [place]: 14 T Wave [place]: 6 EKG Severity - ABNORMAL ECG - EKG Impression: SINUS RHYTHM EKG Impression: ATRIAL PREMATURE COMPLEX EKG Impression: FIRST DEGREE AV BLOCK Electronically Signed By: Erasmo Rosales 05-Oct-2017 15:00:17
--- NOTE | 2017-10-05 16:49 | POSTANESTH ---
Post Anesthetic Evaluation Cardiovascular Status: Normal, Stable, Similar to Pre-Op Cond Respiratory Status: Normal, Stable, Similar to Pre-op Cond. Level of Consciousness/Mental Status: Can Participate in Eval, Alert and Oriented Pain Control: Adequate, Prn Tx Ordered Nausea/Vomiting Control: Adequate, Prn Tx Ordered Complications Possibly Related to Anesthesia: None Noted
== END 2017-10-05 14:59 | disposition home or self-care (01) ==
LOC: FCATH 11:03
PROVIDERS: ATTEND Internal Medicine Cardiovascular Disease
PROC: 5A2204Z Restoration of Cardiac Rhythm, Single (ICD-10-PCS; principal; 2017-10-05)
PROC: B245ZZ4 Ultrasonography of Left Heart, Transesophageal (ICD-10-PCS; principal; 2017-10-05)
DX: I48.91 Unspecified atrial fibrillation (principal)
CPT/HCPCS: J0461; J2704

== ENCOUNTER 2017-11-01 08:37 | Emergency (ER) | payer OTHER ==
[2017-11-01 08:45] VITALS: RESP 16
--- NOTE | 2017-11-01 08:51 | EDPHY ---
H & P Stated Complaint: body aches x 1 week--seeing Bobby for same--denies other flu s/s Time Seen by Provider: 11/01/17 08:51 - Personal History Current Tetanus/Diphtheria Vaccine: Unsure Current Tetanus Diphtheria and Acellular Pertussis (TDAP): Unsure - Medical/Surgical History Hx Asthma: No Hx Chronic Respiratory Disease: No Hx Diabetes: No Hx Cardiac Disease: Yes Hx Renal Disease: No Hx Cirrhosis: No Hx Alcoholism: No Hx HIV/AIDS: No Hx Splenectomy or Spleen Trauma: No Other PMH: a fib ablation 09/05. hyperlipidemiaa - Social History Smoking Status: Never smoked Constitutional: Initial Vital Signs Temperature (C) 36.5 C 11/01/17 08:42 Heart Rate 80 11/01/17 08:42 Respiratory Rate 16 11/01/17 08:42 Blood Pressure 151/95 H 11/01/17 08:42 O2 Sat (%) 96 11/01/17 08:42 O2 Delivery Mode Room Air Allergies/Adverse Reactions: No Known Allergies Allergy (Unverified 06/07/13 12:42) Home Medications: Medication Instructions Recorded [place]-3 Fatty Acids [Fish Oil 1000 1,000 mg PO DAILY 10/04/13 mg (*)] Dabigatran Etexilate Mesyl 150 mg PO BID #0 07/20/17 [Pradaxa 150 MG (*)] Herbals/Supplements -Info Only 1 ea PO DAILY 09/03/17 Levothyroxine [Synthroid 150 mcg 150 mcg PO DAILY06 09/03/17 (*)] Pitavastatin Calcium [Livalo] 0.5 mg PO DAILY 09/03/17 Acetaminophen [Tylenol 325mg (*)] 325 - 650 mg PO Q4HRS PRN tab 09/08/17 oxyCODONE IR [Oxycodone Ir (*)] 5 - 10 mg PO Q6 PRN #20 tab 11/01/17 Medical Decision Making ED Course/Re-evaluation: CHIEF COMPLAINT: Progressive joint pain HISTORY OF PRESENT ILLNESS: The patient is a 62 y/o male arriving with his complaining of progressive joint pain for the last 2 months. He had an ablation for atrial fibrillation with Dr. Rosales on 09/06/17. Afterwards he noticed swelling in his left leg and pain in his right shoulder. They were unable to find an obvious cause for his pain despite consultation with orthopedist. His symptoms were attributed to inflammation so he saw a PT for a few weeks. During that time his pain never improved and actually spread to other joints. He now feels like all his joints are involved. He followed up with [facility] and was prescribed a course of prednisone. While on the prednisone his symptoms almost completely resolved before returning last week. He is taking a lot of ibuprofen without any alleviation and is unable to find a comfortable position or sleep easily. He has his first rheumatology appointment scheduled for tomorrow. He denies fever, cough, dyspnea, nausea, vomiting, abdominal pain, diarrhea. REVIEW OF SYSTEMS: A 10 point review of systems was performed and is negative with the exception of the elements mentioned in the history of present illness. PHYSICAL EXAM: HR, BP, O2 Sat, RR. Temp noted General Appearance: Alert, well hydrated, appropriate, and non-toxic appearing. Appears uncomfortable standing in the room. Head: Atraumatic without scalp tenderness or obvious injury Eyes: Pupils equal, round, reactive to light and accommodation, EOMI, no trauma , no injection. Nose: Atraumatic, no rhinorrhea, clear. Throat: Mucus membranes moist. Neck: Supple, nontender, no lymphadenopathy. Respiratory: No retractions, no distress, no wheezes, and no accessory muscle use. Lungs are clear to auscultation bilaterally. Cardiovascular: Regular rate and rhythm, no murmurs, rubs, or gallops. Good capillary refill all extremities. Gastrointestinal: Abdomen is soft, nontender, non-distended, no masses, no rebound, no guarding, no peritoneal signs. Musculoskeletal: Normal active ROM of all extremities, atraumatic. Acute tenderness over right shoulder. Neurological: Alert, appropriate, and interactive. The patient has non-focal cranial nerves, motor, sensory, and cerebellar exam. Skin: No rashes, good turgor, no nodules on palpation. Past medical history: Atrial fibrillation, hyperlipidemia. Past surgical history: Ablation with Dr. Rosales 09/07/17. Family history: Noncontributory Social history: at bedside. Usually works out frequently DIFFERENTIAL DIAGNOSIS: The differential diagnosis for the patient's pain included but was not limited to polymyalgia rheumatica, other rheumatologic process, infectious process, fracture, ligamentous injury, contusion, muscular strain. MEDICAL DECISION MAKING: This is a 62 y/o male who presents with a 2-month history of progressive joint pain following an ablation procedure for atrial fibrillation. His symptoms were alleviated temporarily by a course of prednisone 2 weeks ago. He has point tenderness over his right shoulder on exam. No rash or trauma on skin. Presentation is consistent with some sort of immunologic process. Plan to consult rheumatology regarding any testing we should perform here prior to his appointment tomorrow. Pain control with PO Percocet and 40mg PO prednisone. 0915: Consulted with Dr. Valencia, network director. He recommends pain control and steroids for what he thinks sounds like polymyalgia rheumatica. He will perform any necessary labs tomorrow. - Data Points Medications Given: Discontinued Medications Oxycodone HCl (Oxycodone Ir) 10 mg PO EDNOW ONE Stop: 11/01/17 09:17 Last Admin: 11/01/17 09:26 Dose: 10 mg Prednisone (Prednisone) 40 mg PO EDNOW ONE Stop: 11/01/17 09:16 Last Admin: 11/01/17 09:25 Dose: 40 mg Departure - Departure Disposition: Home, Routine, Self-Care Clinical Impression: Polymyalgia rheumatica Condition: Good Instructions: Polymyalgia Rheumatica (ED) Additional Instructions: 1. Use Percocet as prescribed when needed for severe pain. This medication can make you drowsy. Do not use while driving. 2. Follow up with rheumatology as planned tomorrow. I spoke with Dr. Valencia and they are aware you were seen in the ED today. 3. Return to the ED for chest pain, dyspnea, fever, or any other worsening of condition. Referrals: José Miguel Candelario MD [Primary Care Provider] - As per Instructions Yoel Valencia MD [Medical Doctor] - As per Instructions Prescriptions: oxyCODONE IR [Oxycodone Ir (*)] 5 - 10 mg PO Q6 PRN #20 tab PRN Reason: Pain, Severe Report Scribed for: Jordan Cole Report Scribed by: Vilma Giles Date of Report: 11/01/17 Time of Report: 09:17
[2017-11-01] MEDS ORDERED: predniSONE 20 MG TAB PO ONE (09:15)
[2017-11-01] MEDS ORDERED: oxyCODONE IR 5 MG TAB PO ONE (09:16)
[2017-11-01 09:34] VITALS: BP 155/95; PULSE 81; TEMP 97.2; O2SAT 95
== END 2017-11-01 09:39 | disposition home or self-care (01) ==
DX: M35.3 Polymyalgia rheumatica (principal)
CPT/HCPCS: J7512